=== PATIENT | male | born 1935 | race Caucasian/White ===

== ENCOUNTER → 2019-11-09 12:04 | Outpatient (CLI) | payer MEDICARE, OTHER ==
[2015-04-23 10:06] VITALS: BMI 24.9
[~2019-11-09 12:04] MED LIST: BETAPACE 120 M120 MG PO; CHLORTHALIDONE25 MG PO; CORDARONE200 MG PO; COUMADIN2.5 MG PO; COZAAR100 MG PO; PAXIL20 MG PO; PRILOSEC20 MG PO; ZIAC 10-6.25 MG1 TAB PO
--- NOTE | 2019-11-13 10:54 | EC ---
PATIENT:ABHI EGAN DATE OF SERVICE: 11/09/19 SEX: M MEDICAL RECORD: [id number] DATE OF : 31 LOCATION:D.[facility] AGE OF PATIENT: 84 ADMISSION DATE: 11/09/19 REFERRING PHYSICIAN: INTERPRETING PHYSICIAN: DUYEN DODSON MD ECHOCARDIOGRAM REPORT ECHO CHARGES 4 ECHO COMPLETE Date: 11/09/19 CLINICAL DIAGNOSIS: DYSPNEA/AFIB/EDEMA ECHOCARDIOGRAPHIC MEASUREMENTS (adult normal given) AC root (d.<3.7cm) 3.7 cm LV Septum d (<1.2 cm> 1.1 cm Valve Excursion 2.0 cm LV Septum (systole) 1.4 cm Left Atria (s.<4.0cm> 5.3 cm LVPW d(<1.2cm) 1.0 cm RV (d.<2.3cm) 5.6 cm LVPW (sytole) 1.1 cm LV diastole(<5.6CM) 5.9 cm MV E-F(>70mm/sec) cm LV systole 5.0 cm LVOT Diameter 1.8 cm MV exc.(>10mm) 1.4 cm Est.ejection fraction (50-75%) % DOPPLER: LVIT cm/sec A 96.0 cm/sec E cm/sec LA cm/sec RVSP 40 mmHg LVOT 58 cm/sec AOP1/2T m/s Asc. Ao 93 cm/sec RVOT 46 cm/sec RA cm/sec PA 79 cm/sec AV Gradient Peak 3.48 mmHg AV Mean 1.84 mmHg AV Area 2.0 cm MV Gradient Peak 1.82 mmHg MV Mean 0.81 mmHg MV Area cm COMMENTS: Template Clerk: 2 VIVI CAIN Wireless Development Manager: 3 Dr. Posey TAPE# PACS Pericardial Effusion N DATE OF SERVICE: Adequate 2D, color flow imaging, spectral Doppler, and M-Mode. Borderline LVH. LV internal dimensions mildly dilated at 5.9 cm. LV is globally hypokinetic with reduced EF, estimated EF 20% to 25%. Aortic valve sclerosis without stenosis by Doppler interrogation. Left atrium is dilated at 5.3 cm. Mitral valve shows no prolapse. Mild MR. Right-sided chambers are grossly normal. Mild TR. ECHOCARDIOGRAM REPORT [id number] ABHI EGAN TRANSINT:[id number] Voice Confirmation ID: [id number] DOCUMENT ID: [id number] DUYEN DODSON MD at 1054 CC: [id number] DICTATION DATE: 11/09/19 1312 MANAGER OCCUPATIONAL: 11/09/19 1504 DEP CLI 11/09/19 [place] [id number] [place] [id number]
== END | disposition home or self-care (01) ==
LOC: D.HCCECHO 12:04
PROVIDERS: ATTEND Internal Medicine Interventional Cardiology
DX: R06.00 Dyspnea, unspecified (principal)

== ENCOUNTER 2019-11-11 09:09 | Inpatient (IN) | payer MEDICARE, OTHER ==
[~2019-11-11] VITALS: Ht 177.8 cm; Wt 91.6 kg
[2019-11-11] VITALS (7 sets, daily range): BP systolic 96–154; BP diastolic 62–87
--- NOTE | ~2019-11-11 | EC ---
PATIENT:ABHI EGAN DATE OF SERVICE: 11/11/19 SEX: M MEDICAL RECORD: [id number] DATE OF : [birth year] LOCATION:D.M2 D.211 AGE OF PATIENT: 84 ADMISSION DATE: 11/11/19 REFERRING PHYSICIAN: INTERPRETING PHYSICIAN: DUYEN DODSON MD ECHOCARDIOGRAM REPORT ECHO CHARGES 5 ECHO LIMITED Date: 11/12/19 CLINICAL DIAGNOSIS: REASSESS EF, AFIB ECHOCARDIOGRAPHIC MEASUREMENTS (adult normal given) AC root (d.<3.7cm) cm LV Septum d (<1.2 cm> cm Valve Excursion cm LV Septum (systole) cm Left Atria (s.<4.0cm> cm LVPW d(<1.2cm) cm RV (d.<2.3cm) cm LVPW (sytole) cm LV diastole(<5.6CM) cm MV E-F(>70mm/sec) cm LV systole cm LVOT Diameter cm MV exc.(>10mm) cm Est.ejection fraction (50-75%) % DOPPLER: LVIT cm/sec A cm/sec E cm/sec LA cm/sec RVSP mmHg LVOT cm/sec AOP1/2T m/s Asc. Ao cm/sec RVOT cm/sec RA cm/sec PA cm/sec AV Gradient Peak mmHg AV Mean mmHg AV Area cm MV Gradient Peak mmHg MV Mean mmHg MV Area cm COMMENTS: Tugboat Captain: Caterina CAIN Property Claim Rep: 4 Dr. Rene TAPE# PACS Pericardial Effusion N DATE OF SERVICE: Technically limited study. This is to assess LV function with the patient now with controlled atrial rates. LV internal dimensions appear normal. LV appears globally hypokinetic. Difficult to fully assess focal wall motion from underlying atrial fibrillation; however, from view present estimated EF 30% to 35%. Aortic valve appears to be tricuspid with good valve excursion. Again, mitral valve shows good valve excursion. ECHOCARDIOGRAM REPORT [id number] ABHI EGAN TRANSINT:[id number] Voice Confirmation ID: [id number] DOCUMENT ID: [id number] DUYEN DODSON MD CC: [id number] DICTATION DATE: 11/13/19 0953 PARKING METER ATTENDANT: 11/13/19 1249 ADM IN [place] [id number] [place] [address]
[~2019-11-11 09:09] MED LIST changes: -CHLORTHALIDONE25 MG PO
--- NOTE | 2019-11-11 09:13 | NUR ---
Daughters phone number [phone] Son's phone number [phone]
[2019-11-11] MEDS ORDERED: CHLORTHALIDONE25 MG PO (09:14)
[2019-11-11 09:21] LABS: BASOPHILS 0.2 % (0-2); EOSINOPHILS 1.5 % (0-7); HEMATOCRIT 44.1 % (42.0-54.0); HEMOGLOBIN 14.3 g/dL (13.5-17.5); IMMATURE GRANULOCYTES 0.2 % (0-5); LYMPHOCYTES 14.5 % (15-50); MCH 29.9 pg (26.0-34.0); MCHC 32.4 g/dL (31.0-37.0); MCV 92.3 fL (80.0-100.0); MEAN PLATELET VOLUME 10.8 fL (7.4-10.4); MONOCYTES 7.7 % (2-11); NEUTROPHILS 75.9 % (40-80); PLATELET COUNT 214 10x3/uL (130-400); RBC 4.78 10x6/uL (4.20-6.10); RDW 12.7 % (11.5-14.5); WBC 8.8 10x3/uL (4.8-10.8)
[2019-11-11 09:30] LABS: APTT 33.7 SECONDS (22.8-39.4); INR 1.1 (0.85-1.17); PROTIME 14.1 SECONDS (11.6-15.0)
[2019-11-11 09:31] LABS: CALC OSMOLALITY 285 mosm/kg (275-300); CALCIUM 8.6 mg/dL (8.5-10.1); CHLORIDE - SERUM 99 mmol/L (98-107); CREATININE - SERUM 1.7 mg/dL (0.6-1.3); GLUCOSE 138 mg/dL (74-106); POTASSIUM - SERUM 3.6 mmol/L (3.5-5.1); SODIUM 138 mmol/L (136-145); UREA NITROGEN 34 mg/dL (7-18); eGFR NON AFRICAN AMERICAN 41 mL/min (90-120)
[2019-11-11 09:47] LABS: ALBUMIN 3.5 g/dL (3.4-5.0); ALKALINE PHOSPHATASE 90 U/L (30-120); ALT (SGPT) 43 U/L (10-68); BILIRUBIN - TOTAL 1.33 mg/dL (0.2-1.3); CKMB 2.2 U/L (0.0-3.6); CREATINE KINASE 49 UL (21-232); MAGNESIUM - SERUM 1.9 mg/dL (1.8-2.4)
[2019-11-11 09:48] LABS: TROPONIN-I < 0.017 ng/mL (0.000-0.060)
[2019-11-11 10:10] LABS: T4 THYROXIN - FREE 1.27 ng/dL (0.76-1.46); T4 THYROXINE 9.6 ug/dL (4.7-13.3)
--- NOTE | 2019-11-11 10:58 | NUR ---
RECIEVED REPORT FROM JUWAN BECKHAM.
--- NOTE | 2019-11-11 11:00 | NUR ---
SPOKE WITH ECHO NURSE, SHE STATES PT HAD OUTPATIENT ECHO ON WEDNESDAY SO PT DOES NOT NEED A NEW ONE. OBTAINED COPY OF ECHO WILL PLACE ON CHART.
--- NOTE | 2019-11-11 11:36 | NUR ---
PT ARRIVED BED, SCOOTED SELF OVER ON TO OUR BED. PLESANT DEMENOR. AERT AND ORIENTED.
--- NOTE | 2019-11-11 15:25 | NUR ---
PT AWAKE AND ORIENTED, HASA HAD MULTIPLE LARGE AND RUNNY BMS POST LACTOLOSE. PT TOLERATED DOSE OF DIGOXIN, UPDATED NORRED, TOLD TO GIVE DOSE OF 5MG LOPRESSOR. WILL GIVE LONG B/P IS WITHIN PERAMTER. CL IN REACH, SRX2.
--- NOTE | 2019-11-11 17:40 | NUR ---
SPOKE TO DR. NORRIS, PER HIS ORDER TITRATED CARDAZEM DOWN TO 10, HE STATES THAT IF PT HR GOES ABOVE 110 TITRATE BACK UP. WILL CNT. TO MONITOR. INFORMED DR OF PTS LOW B/P
--- NOTE | 2019-11-11 17:56 | NUR ---
I CONCUR WITH THIS GRAVEL TRUCK DRIVER ASSESSMENT OF THIS PATIENT.
--- NOTE | 2019-11-11 19:45 | NUR ---
REPORT RECIEVED AND INITIAL ROUNDS COMPLETED. PT AWAKE/ALERT AND RESTING IN BED. CARDIZEM DRIP AT 10ML/HR INFUSING TO LEFT A/C. NONLABORED RESPIRATIONS ON ROOM AIR. CAF/62 PER TELEMETRY. CPOC.
[2019-11-12] VITALS: BP 131/88
[2019-11-12 01:06] VITALS: BP 117/72; BMI 29.0
--- NOTE | 2019-11-12 02:43 | NUR ---
RESTING IN BED. IV CARDIZEM INFUSING AT 10ML/HR. 86 CAF PER TELEMETRY.
--- NOTE | 2019-11-12 02:51 | NUR ---
RESETTING TIMES FOR IV LASIX TO 0500 AND 1700.
[2019-11-12 04:00] VITALS: BP 134/82
[2019-11-12 05:42] LABS: BASOPHILS 0.3 % (0-2); EOSINOPHILS 2.1 % (0-7); HEMATOCRIT 44.4 % (42.0-54.0); HEMOGLOBIN 14.3 g/dL (13.5-17.5); IMMATURE GRANULOCYTES 0.1 % (0-5); LYMPHOCYTES 8.6 % (15-50); MCH 29.5 pg (26.0-34.0); MCHC 32.2 g/dL (31.0-37.0); MCV 91.7 fL (80.0-100.0); MEAN PLATELET VOLUME 10.2 fL (7.4-10.4); MONOCYTES 8.5 % (2-11); NEUTROPHILS 80.4 % (40-80); PLATELET COUNT 198 10x3/uL (130-400); RBC 4.84 10x6/uL (4.20-6.10); RDW 12.5 % (11.5-14.5); WBC 7.1 10x3/uL (4.8-10.8)
[2019-11-12 06:18] LABS: ANION GAP 8.2 mmol/L (8-16); CALCIUM 8.6 mg/dL (8.5-10.1); CARBON DIOXIDE 33.4 mmol/L (21.0-32.0); CREATININE - SERUM 1.6 mg/dL (0.6-1.3)
[2019-11-12 06:22] LABS: POTASSIUM - SERUM 2.6 mmol/L (3.5-5.1)
--- NOTE | 2019-11-12 07:45 | NUR ---
PT AWAKE AND ORIENTED. LYING IN BED, STATES HE SLEPT OK AND FINALLY STOPPED HAVING BOWEL MOVEMENTS. PT IS HOPING TO D/C TODAY, INFORMED HIM THAT IS UNLIKELY AT THIS TIME BUT WILL REASSES THROUGHOUT THE DAY. PTS HR STILL OCCASIONALLY JUMPS TO TO ABOVE 110, SO WE HAVE LEFT CARDIZEM GOING @10. CL INR EACH, SRX2.
[2019-11-12 09:18] VITALS: BP 130/85
--- NOTE | 2019-11-12 16:17 | NUR ---
I have reviewed this patient and I concur with the Shift Assessment completed by the Licensed Practical Nurse today this shift.
--- NOTE | 2019-11-12 17:54 | NUR ---
AT 1620 I WENT INTO PTS ROOM TO ADMINISTER MEDICATION, WHEN PT DID NOT ANSWER ME I CHECKED BATHROOM TO FIND PT SLUMPED OVER, LEANING RIGHT, ON THE TOILET. AFTER CALLING PTS NAME WITHOUT RESPONNSIVE AND NOTING COMPLETELY FLACID RIGHT SIDE, I CALLED A RAPID RESPONSE (162). TOOK PT OVER TO CT, THEN ER PER STROKE PROTOCOL. PT WAS NOT CANDIDATE FOR ARRSAVES MED D/T PT RECIEVING LOVENOX THIS MORNING. PT IS RESPONSIVE TO SOUND AND PHYSCIAL MOVMENT, BUT UNABLE TO COMMUNICATE. WAITING ON DR. JEAN BAPTISTE TO CALL BACK AFTER DR. ALVARADO CALLED HIM WITH THE INITIAL RAPID. SPOKE WITH PTS GRANDDAUGHTER WHO INFORMED THE REST OF THE FAMILY WHAT WAS GOING ON, THEY WILL CALL ME BACK AT AROUND 1830 FOR AN UPADATE. UNDERSTANDABLY DISTRESSD ABOUT NOT BEING ABLE TO SEE THE PT BUT ALSO COMPLIENT WITH REGULATIONS. WILL CNT. TO MONITOR PT CLOSESLY.
--- NOTE | 2019-11-12 18:17 | NUR ---
AR SAVES COMPLETE, PT RETURNED TO ROOM IN 2116. CT SHOWS NO ACUTE ABNORMALITIES. PT STILL WITH RT SIDE DEFICITS. PER DR ECHEVERRIA OBTAIN ABG AND MRI WITHOUT CONTRAST. ORDERS PLACED.
--- NOTE | 2019-11-12 18:32 | NUR ---
PT TAKEN TO C/T
[2019-11-12 20:00] VITALS: BP 115/91
--- NOTE | 2019-11-12 20:04 | NUR ---
MRI HERE TO TAKE PT FOR SCAN. PT RESTLESS, NOT FOLLOWING DIRECTIONS. WILL NOT BE ABLE TO GET A SUCCESSFUL MRI IN CURRENT STATE OF RESTLESSNESS. CALL TO DR ECHEVERRIA AND ORDERS RECIEVED. MEDICATED WITH ATIVAN 1MG SIVP AND STAFF X 4 TRANSFERRED PT TO [facility] TO GO TO MRI. ACCOMPANIED BY PRINT PRODUCTION ASSOCIATE.
--- NOTE | 2019-11-12 22:45 | NUR ---
DELIVERED TO DAUGHTER, MARV, PT'S 5 PRESCRIPTION BOTTLES, MEDICARE CARD, INSURANCE CARD, AND HIS GOLD RING WITH 5 STONES IN IT. ALL GIVEN TO MARV BY THIS NURSE.
[2019-11-13 01:26] VITALS: BP 126/84
--- NOTE | 2019-11-13 03:54 | NUR ---
PT RESTING WITH EYES CLOSED. RESP EVEN AND REGULAR. SR UP X2, CALL LIGHT WITHIN REACH.
--- NOTE | 2019-11-13 04:29 | NUR ---
CALL FROM MARV PASTOR, UPDATE GIVEN ON PATIENT STATUS.
[2019-11-13 04:30] VITALS: BP 127/87
[2019-11-13 06:58] LABS: BASOPHILS 0.2 % (0-2); EOSINOPHILS 1.3 % (0-7); HEMATOCRIT 45.3 % (42.0-54.0); HEMOGLOBIN 14.6 g/dL (13.5-17.5); IMMATURE GRANULOCYTES 0.2 % (0-5); LYMPHOCYTES 9.1 % (15-50); MCH 29.6 pg (26.0-34.0); MCHC 32.2 g/dL (31.0-37.0); MCV 91.9 fL (80.0-100.0); MEAN PLATELET VOLUME 10.7 fL (7.4-10.4); MONOCYTES 9.1 % (2-11); NEUTROPHILS 80.1 % (40-80); PLATELET COUNT 193 10x3/uL (130-400); RBC 4.93 10x6/uL (4.20-6.10); RDW 12.4 % (11.5-14.5); WBC 8.4 10x3/uL (4.8-10.8)
[2019-11-13 07:20] LABS: BILIRUBIN - TOTAL 1.21 mg/dL (0.2-1.3); CALCIUM 8.6 mg/dL (8.5-10.1); CARBON DIOXIDE 34.6 mmol/L (21.0-32.0); CREATININE - SERUM 1.6 mg/dL (0.6-1.3); PROTEIN - SERUM 6.1 g/dL (6.4-8.2)
--- NOTE | 2019-11-13 07:27 | NUR ---
PT RESTING COMFROTABLY, NOT TWITCHING OR MOVING AT THIS TIME EXCEPT FO RLEFT FOOT, WHICH IS STILL DOING THE PEDAL MOTION REPEATEDLY. IR BELIEVES PT SHOULD BE SEEN BY FAMILY, WILL TRY AGAIN FOR A VISISOTR TODAY. CL IN REACH, SRX2.
[2019-11-13 07:58] LABS: ANION GAP 11.2 mmol/L (8-16); POTASSIUM - SERUM 2.8 mmol/L (3.5-5.1)
[2019-11-13 09:22] VITALS: BP 125/76
--- NOTE | 2019-11-13 09:53 | NUR ---
PT APPEARS MORE AGITATED, WONT LEAVE CLOTHING ON AND ATTEMPTS TO PULL I/V. HAD TO STOP POTASSIUM BECAUSE PT WILL NOT STOP BENDING HIS HAND, PLACED A VASCULAR ACCESS CONSULT FOR A BETTER LINE. SPOKE WITH PTS DAUGHTER DAREN, INFORMED HER SHE WAS GIVEN PERMISSION TO COME SEE THE PT FOR A TIME BUT SHE WOULD BE UNABLE TO STAY OVERNIGHT. DAUGHTER WAS VERY GREATFUL. UPDATED ON PTS CONDITION. CL IN REACH, SRX2, CLOTHES CURRENTLY ON, LINNENS CHANGED. CLEAN AND DRY AT THIS TIME.
[2019-11-13 10:58] VITALS: Ht 177.8 cm; Wt 91.6 kg
--- NOTE | 2019-11-13 11:54 | NUR ---
PLACED ABAD PER STERILE NURSING PROTOCOL.
[2019-11-13 12:48] VITALS: BP 131/61
--- NOTE | 2019-11-13 13:55 | NUR ---
I have reviewed this patient and I concur with the Shift Assessment completed by the Licensed Practical Nurse today this shift.
--- NOTE | 2019-11-13 14:48 | MORECARE ---
CASE MANAGEMENT DISCHARGE SUMMARY PATIENT: ABHI MCBRIDE UNIT: [id number] ADM DATE: 11/11/19 AGE: 84 : 33 SEX: M ROOM/BED: D.2117 AUTHOR: GENEVIEVE MONAHAN PHYSICIAN: REFERRING PHYSICIAN: CHRISTINA VICKERS MD DATE OF SERVICE: 11/13/19 Discharge Plan Patient Name: ABHI MCBRIDE [facility] [facility] 1935 Planned Disposition: Residential Facility Anticipated Discharge Date: Discharge Date: Expected LOS: Initial Reviewer: [email or web address] Initial Review Date: 11/13/2019 Generated: 11/13/19 3:47 pm DCPIA - Discharge Planning Initial Assessment Updated by [email or web address]: Evangelina Marie on 11/13/19 2:46 pm * Is the patient Alert and Oriented? Yes * How many steps to enter\exit or inside your home? RAMP/0 * PCP Daniel Webster * Pharmacy [facility] * Preadmission Environment Home Alone * ADLs Independent * Equipment None * List name and contact numbers for known caregivers / representatives who currently or will assist patient after discharge: Birgitniru Conroy - [phone] (POA) Sandip Mcbride - son [phone] Rebekah Najera - grand daughter - [phone] * Verbal permission to speak to the caregivers and representatives has been obtained from the patient. Yes * Community resources currently utilized None * Additional services required to return to the preadmission environment? Yes * Can the patient safely return to the preadmission environment? No * Has this patient been hospitalized within the prior 30 days at any hospital? No Patient Name: ABHI MCBRIDE Page 90995 at 1448 All edits/amendments must be made on the electronic document DICTATION DATE: 11/13/191446 HOUSE CARPENTER: HENRY 11/13/191446 RPT#: [id number] DC DATE: STATUS: ADM IN [facility] [address] [place] [address] END OF REPORT
--- NOTE | 2019-11-13 15:02 | MORECARE ---
CASE MANAGEMENT DISCHARGE SUMMARY PATIENT: ABHI MCBRIDE UNIT: [id number] ADM DATE: 11/11/19 AGE: 84 : 33 SEX: M ROOM/BED: D.2117 AUTHOR: TANIYA,DOC PHYSICIAN: REFERRING PHYSICIAN: CHRISTINA VICKERS MD DATE OF SERVICE: 11/13/19 Discharge Plan Patient Name: ABHI MCBRIDE Facility: [facility]:[place] : 1935 Planned Disposition: [facility] Facility Anticipated Discharge Date: Discharge Date: Expected LOS: Initial Reviewer: [email or web address] Initial Review Date: 11/13/2019 Generated: 11/13/19 4:01 pm Comments DCP- Discharge Planning Updated by [email or web address]: Evangelina Marie on 11/13/19 1:[address] Patient Name: ABHI MCBRIDE Admission Status: ER Accout number: [id number] Admission Date: 11-11-2019 : 1935 Admission Diagnosis:UNSPECIFIED ATRIAL FIBRILLATION Attending: CHRISTINA FERMIN Current LOS: 2 Anticipated DC Date: Planned Disposition: [facility] Facility Primary Insurance: MEDICARE A & B Discharge Planning Comments: CM spoke with patient's daughter concerning discharge planning/needs and Dr. Ramirez's order for hospice. She states she would like to speak with Dr. Ramirez before consulting hospice. I informed Makaylaindy with Dr. Ramirez. Daughter states prior to hospitalization, patient was independent with all ADL's and IADL's. Patient did not have any DME. I instructed her on SNF as well as Hospice agencies and [facility] lists given to her while she was here. CM will continue to follow and assist with discharge planning/needs. Driller Brake Lining: Evangelina Marie DCPIA - Discharge Planning Initial Assessment Updated by [id number]: Evangelina Marie on 11/13/19 2:46 pm * Is the patient Alert and Oriented? Yes * How many steps to enter\exit or inside your home? RAMP/0 * PCP Daniel Webster * [facility] * Preadmission Environment Home Alone * ADLs Independent * Equipment None * List name and contact numbers for known caregivers / representatives who currently or will assist patient after discharge: Birgit Conroy - [phone] (POA) Sandip Mcbride - son [phone] Rebekah Najera - grand daughter - [phone] * Verbal permission to speak to the caregivers and representatives has been obtained from the patient. Yes * Community resources currently utilized None * Additional services required to return to the preadmission environment? Yes * Can the patient safely return to the preadmission environment? No * Has this patient been hospitalized within the prior 30 days at any hospital? No Last DP export: 11/13/19 1:48 pm Patient Name: ABHI MCBRIDE Page 95245 at 1502 All edits/amendments must be made on the electronic document DICTATION DATE: 11/13/191500 ENGLISH DRAWER: HENRY 11/13/191500 RPT#: [id number] DC DATE: STATUS: ADM IN [facility] [address] [place] [address] END OF REPORT
--- NOTE | 2019-11-13 15:48 | NUR ---
GAVE ONE TIME DOSE ATIVAN FOR MRI, PT MOVING AROUND A LOT, PULLING AT ABAD REPEATEDLY, HAVE HAD TO REPLACE STATLOCK TWICE THUS FAR. PT RESPONDS TO QUESTIONS WITH SLURRED/GARBLED SPEECH. MORE MOVEMENT IS NOTED ON THE RIGHT SIDE OF HIS BODY. PT CONTINUES TO TRY AND HOLD HIS EYES OPEN WITH HIS HANDS, BUT IT IS NOTED THAT HIS EYE OPENEING IS MORE SPONTANEOUS AT THIS TIME. CL IN REACH, SRX2,
--- NOTE | 2019-11-13 17:05 | MORECARE ---
CASE MANAGEMENT DISCHARGE SUMMARY PATIENT: ABHI MCBRIDE UNIT: [id number] ADM DATE: 11/11/19 AGE: 84 : 33 SEX: M ROOM/BED: D.2117 AUTHOR: TANIYA,DOC PHYSICIAN: REFERRING PHYSICIAN: CHRISTINA VICKERS MD DATE OF SERVICE: 11/13/19 Discharge Plan Patient Name: ABHI MCBRIDE Facility: [facility]:[place] : 1935 Planned Disposition: Nursing Home Facility Anticipated Discharge Date: Discharge Date: Expected LOS: Initial Reviewer: [email or web address] Initial Review Date: 11/13/2019 Generated: 11/13/19 6:05 pm Comments DCP- Discharge Planning Updated by [id number]: Evangelina Marie on 11/13/19 1:[address] Patient Name: ABHI MCBRIDE Admission Status: ER Accout number: [id number] Admission Date: 11-11-2019 : 1935 Admission Diagnosis:UNSPECIFIED ATRIAL FIBRILLATION Attending: CHRISTINA FERMIN Current LOS: 2 Anticipated DC Date: Planned Disposition: Nursing Home Facility Primary Insurance: MEDICARE A & B Discharge Planning Comments: CM spoke with patient's daughter concerning discharge planning/needs and Dr. Ramirez's order for hospice. She states she would like to speak with Dr. Ramirez before consulting hospice. I informed Makaylaindy with Dr. Ramirez. Daughter states prior to hospitalization, patient was independent with all ADL's and IADL's. Patient did not have any DME. I instructed her on SNF as well as Hospice agencies and [facility] lists given to her while she was here. CM will continue to follow and assist with discharge planning/needs. Rn Appeals: Evangelina Marie DCPIA - Discharge Planning Initial Assessment Updated by [id number]: Evangelina Marie on 11/13/19 2:46 pm * Is the patient Alert and Oriented? Yes * How many steps to enter\exit or inside your home? RAMP/0 * PCP Daniel Webster * [facility] * Preadmission Environment Home Alone * ADLs Independent * Equipment None * List name and contact numbers for known caregivers / representatives who currently or will assist patient after discharge: Birgit Conroy - [phone] (POA) Sandip Mcbride - son [phone] Rebekah Najera - grand daughter - [phone] * Verbal permission to speak to the caregivers and representatives has been obtained from the patient. Yes * Community resources currently utilized None * Additional services required to return to the preadmission environment? Yes * Can the patient safely return to the preadmission environment? No * Has this patient been hospitalized within the prior 30 days at any hospital? No External Providers External Provider[facility] [facility] Next Contact Date: Service Request Date: Service Type: Resolution: Reviewer: Comments: Last DP export: 11/13/19 2:02 pm Patient Name: ABHI MCBRIDE Page 31041 at 1705 All edits/amendments must be made on the electronic document DICTATION DATE: 11/13/191704 SALES RELATIONSHIP MANAGER: HENRY 11/13/191704 RPT#: [id number] DC DATE: STATUS: ADM IN [facility] [address] [place] [address] END OF REPORT
--- NOTE | 2019-11-13 17:13 | MORECARE ---
CASE MANAGEMENT DISCHARGE SUMMARY PATIENT: ABHI MCBRIDE UNIT: [id number] ADM DATE: 11/11/19 AGE: 84 : 33 SEX: M ROOM/BED: D.2117 AUTHOR: GENEVIEVE MONAHAN PHYSICIAN: REFERRING PHYSICIAN: CHRISTINA VICKERS MD DATE OF SERVICE: 11/13/19 Discharge Plan Patient Name: ABHI MCBRIDE Facility: [facility]:[place] : 1935 Planned Disposition: [facility] Facility Anticipated Discharge Date: Discharge Date: Expected LOS: Initial Reviewer: [email or web address] Initial Review Date: 11/13/2019 Generated: 11/13/19 6:12 pm Comments DCP- Discharge Planning Updated by [id number]: Evangelina Frank on 11/13/19 4:[address] Spoke with daughter and she choses [facility]. I called and spoke to Javier and clinical faxed. He states he will have a nurse come and evaluate this evening. CM will continue to follow and assist with discharge planning/needs. DCP- Discharge Planning Updated by [id number]: Evangelina Marie on 11/13/19 1:[address] Patient Name: ABHI MCBRIDE Admission Status: ER Accout number: [id number] Admission Date: 11-11-2019 : 1935 Admission Diagnosis:UNSPECIFIED ATRIAL FIBRILLATION Attending: CHRISTINA FERMIN Current LOS: 2 Anticipated DC Date: Planned Disposition: [facility] Facility Primary Insurance: MEDICARE A & B Discharge Planning Comments: CM spoke with patient's daughter concerning discharge planning/needs and Dr. Raimrez's order for hospice. She states she would like to speak with Dr. Ramirez before consulting hospice. I informed Ciindy with Dr. Ramirez. Daughter states prior to hospitalization, patient was independent with all ADL's and IADL's. Patient did not have any DME. I instructed her on SNF as well as Hospice agencies and [facility] lists given to her while she was here. CM will continue to follow and assist with discharge planning/needs. Registered Nurse Practitioner: Evangelina Marie DCPIA - Discharge Planning Initial Assessment Updated by [email or web address]: Evangelina Marie on 11/13/19 2:46 pm * Is the patient Alert and Oriented? Yes * How many steps to enter\exit or inside your home? RAMP/0 * PCP Daniel Webster * Pharm[facility] * Preadmission Environment Home Alone * ADLs Independent * Equipment None * List name and contact numbers for known caregivers / representatives who currently or will assist patient after discharge: Birgit Conroy - [phone] (POA) Sandip Mcbride - son [phone] Rebekah Najera - grand daughter - [phone] * Verbal permission to speak to the caregivers and representatives has been obtained from the patient. Yes * Community resources currently utilized None * Additional services required to return to the preadmission environment? Yes * Can the patient safely return to the preadmission environment? No * Has this patient been hospitalized within the prior 30 days at any hospital? No Coverage Notice Reviewer: [email or web address] Hector Marie Notice Issued Date-Time: 11/13/2019 17:09 Notice Type: Patient Choice Letter Notice Delivered To: Family Member Relationship to Patient: Daughter Fork Lift Truck Operator Name: Birgit Conroy Delivery Method: HAND - Hand Delivered Michelle Days: Prior Verbal Notification: Recipient Understood Notice: Yes Recipient Signature: Yes Med Rec Note Co-signed by Attending: Coverage Notice Comment: [facility] for [facility] Last DP export: 11/13/19 4:05 pm Patient Name: ABHI MBCRIDE Page [phone] at 1713 All edits/amendments must be made on the electronic document DICTATION DATE: 11/13/191711 GENERAL LEDGER BOOKKEEPER: HENRY 11/13/191711 RPT#: [id number] DC DATE: STATUS: ADM IN [facility] [address] [place] [address] END OF REPORT
[2019-11-13 18:01] VITALS: BP 109/79
--- NOTE | 2019-11-13 18:29 | NUR ---
PT STATUS UNCHANGED, STILL AGITATED AND PULLING AT CATHETER INTERMITENTLY. CHECKING FREQUENTLY, REPLACING O2 TUBING NEEDED. PTS FAMILY DECIDED HOSPICE. CL IN REACH, SRX2.
--- NOTE | 2019-11-13 18:47 | NUR ---
HOSPICE NURSE IN ROOM DOING ASSESMENT.
--- NOTE | 2019-11-13 18:52 | NUR ---
PT PULLED OUT UPPER LEFT ARM I/V THAT HAD THE CARDIZEM RUNNING.
--- NOTE | 2019-11-13 20:26 | NUR ---
PATIENT SON HERE TO HELP HIS SISTER MAKE A DECISION TO PLACE FATHER ON HOSPICE.
[2019-11-13 21:08] VITALS: BP 115/70
== END 2019-11-13 22:21 | disposition hospice, inpatient (51) | DRG 291 ==
LOC: D.ER 09:09 → D.M2 10:06
PROVIDERS: Emergency Medicine; Family Medicine; ADMIT Family Medicine Adult Medicine; ATTEND Family Medicine Adult Medicine
DX: I50.23 Acute on chronic systolic (congestive) heart failure (principal); R40.2114 Coma scale, eyes open, never, 24 hours or more after hospital admission; R40.2344 Coma scale, best motor response, flexion withdrawal, 24 hours or more after hospital admission; R40.2224 Coma scale, best verbal response, incomprehensible words, 24 hours or more after hospital admission; R53.2 Functional quadriplegia; N17.9 Acute kidney failure, unspecified; I67.82 Cerebral ischemia; I48.91 Unspecified atrial fibrillation; I11.0 Hypertensive heart disease with heart failure; R29.810 Facial weakness

== ENCOUNTER 2019-11-12 16:48 | Emergency (ER) | payer MEDICARE, OTHER ==
[~2019-11-12] VITALS: Ht 177.8 cm; Wt 90.9 kg
[~2019-11-12 16:48] MED LIST changes: +CHLORTHALIDONE25 MG PO
[2019-11-12 16:49] VITALS: BP 83/56; Ht 177.8 cm; Wt 90.9 kg
== END 2019-11-12 17:32 | disposition other institution (70) ==
LOC: D.ER 16:48
DX: I63.9 Cerebral infarction, unspecified (principal); I48.91 Unspecified atrial fibrillation; I10 Essential (primary) hypertension; G81.90 Hemiplegia, unspecified affecting unspecified side

== ENCOUNTER 2019-11-13 22:12 | Inpatient (IN) | payer OTHER ==
[~2019-11-13] VITALS: Ht 177.8 cm; Wt 85.4 kg
--- NOTE | 2019-11-14 07:14 | NUR ---
LYING IN BED WITH EYES CLOSED. BREATHING LABORED. SIDE RAILS UP X2. ABAD INTACT
[2019-11-14 08:29] VITALS: BP 132/89
[2019-11-14 11:17] VITALS: Ht 177.8 cm; Wt 85.4 kg
--- NOTE | 2019-11-14 13:40 | NUR ---
RESTING WITH EYES CLOSED. BREATHING LABORED. SIDE RAILS UP X2
--- NOTE | 2019-11-14 17:00 | NUR ---
RESTING WITH EYES CLOSED. LABORED BREATHING. 02 AT 2 LITERS.
--- NOTE | 2019-11-14 19:10 | NUR ---
RECEIVED BEDSIDE REPORT. PATIENT RESTING COMFORTABLY IN BED. RESPIRATIONS NOTED. PATIENT REMAINS ON MORPHINE GREENBELT. NO S/S OF DISTRESS. CALL LIGHT WITHIN REACH. WILL CPOC.
[2019-11-14 20:00] VITALS: BP 120/91
[2019-11-15] VITALS: BP 113/82
[2019-11-15 08:00] VITALS: BP 110/89
--- NOTE | 2019-11-15 19:40 | NUR ---
ALERTED BY PATIENTS FAMILY THAT HE WAS NO LONGER BREATHING. NO BREATH SOUNDS OR HEART BEAT NOTED UPON AUSCULTATION. [facility] NOTIFIED.
== END 2019-11-15 22:54 | DRG 951 ==
LOC: D.M2 22:12
PROVIDERS: ADMIT Legal Medicine; ATTEND Legal Medicine
DX: Z51.5 Encounter for palliative care (principal)